=== PATIENT | female | born 1975 | race Caucasian/White ===

== ENCOUNTER 2019-01-04 14:28 | Outpatient (CLI) | payer BC ==
[~2019-01-04] VITALS: Ht 170.2 cm; Wt 127.0 kg
[2019-01-04 14:34] VITALS: BP 133/86
[2019-01-04] MEDS ORDERED: CITA40TA19 PO (14:40)
[2019-01-04 15:12] LABS: BASOPHILS % (AUTO) 0 % (0-10); EOSINOPHILS # (AUTO) 0.1 10^3/uL (0.0-0.3); EOSINOPHILS % (AUTO) 1 % (0-10); HEMATOCRIT 34 % (35-52); HEMOGLOBIN 10.8 G/DL (11.5-16.0); LYMPHOCYTES # (AUTO) 3.1 X 10^3 (1.0-4.0); LYMPHOCYTES % (AUTO) 44 % (12-44); MEAN CORPUSCULAR HEMOGLOBIN 24 PG (25-34); MEAN CORPUSCULAR HGB CONC 32 G/DL (32-36); MEAN CORPUSCULAR VOLUME 76 FL (80-99); MEAN PLATELET VOLUME 9.6 FL (7.4-10.4); MONOCYTES # (AUTO) 0.4 X 10^3 (0.0-1.0); MONOCYTES % (AUTO) 6 % (0-12); NEUTROPHILS # (AUTO) 3.4 X 10^3 (1.8-7.8); NEUTROPHILS % (AUTO) 48 % (42-75); PLATELET COUNT 397 10^3/uL (130-400); RED CELL DISTRIBUTION WIDTH 15.5 % (10.0-14.5); WHITE BLOOD COUNT 7.1 10^3/uL (4.3-11.0)
[2019-01-08] MEDS ORDERED: DOCU-143 PO (09:58)
[2019-01-08] MEDS ORDERED: IBUP-1780 PO (09:58)
[2019-01-08] MEDS ORDERED: OXYC1TAB87 PO (09:58)
== END 2019-01-04 15:15 | disposition home or self-care (01) ==
LOC: PREOP 14:28
PROVIDERS: ATTEND Obstetrics & Gynecology
DX: Z01.812 Encounter for preprocedural laboratory examination (principal); Z11.2 Encounter for screening for other bacterial diseases; N93.8 Other specified abnormal uterine and vaginal bleeding; D64.9 Anemia, unspecified
CPT/HCPCS: 36415; 85025; 86850; 86900; 86901; 87081

== ENCOUNTER 2019-01-08 11:15 | Day surgery (SDC) | payer BC ==
[~2019-01-08] VITALS: Ht 170.2 cm; Wt 127.0 kg
--- NOTE | 2019-01-08 09:19 | Progress Note-Pre Operative ---
Pre-Operative Progress Note H&P Reviewed The H&P was reviewed, patient examined and no changes noted. Date Seen by Provider: Jan 08, 2019 Time Seen by Provider: 12:30 Date H&P Reviewed: Jan 08, 2019 Time H&P Reviewed: 12:30 Pre-Operative Diagnosis: DUB/Menorrhagia/pelvic mass XENIA DAWSON MD Jan 08, 2019 09:19
--- NOTE | 2019-01-08 09:20 | Progress Note-Post Operative ---
Post-Operative Progess Note Surgeon (s)/Manager Dairy (s) Surgeon XENIA DAWSON MD Manager Dairy: Peg English Pre-Operative Diagnosis DUB/Menorrhagia/pelvic mass Post-Operative Diagnosis same with path pending Procedure & Operative Findings Date of Procedure 01/08/19 Procedure Performed/Findings TLH with BS Anesthesia Type geta Estimated Blood Loss Estimated blood loss (mL): Minimal Specimens/Packing Specimens Removed Uterus and tubes Packing: none XENIA DAWSON MD Jan 08, 2019 09:20
--- NOTE | 2019-01-08 09:59 | Discharge Instructions ---
Discharge Instructions Discharge Medications New, Converted or Re-Newed RX: RX on Chart Patient Instructions Patient Instructions: as directed Return to The Hospital For: as directed Activity & Diet Discharge Diet: No Restrictions Activity as Tolerated: No Orders-Post D/C & Referrals Follow Up Appt: RTC on Friday January 11, 2019 at 9:30 AM for staple removal Call to make follow up appt. for patient in 4 weeks. Activity: Rest for 24 hours, than as tolerated. Wound Care: May remove Band-Aid tomorrow. Replace as desired. Keep incisions clean and dry. Wash daily with soap and water. Please call in RX to patient pharmacy. Diet: As tolerated-Clear Liquids only if nauseated. shower or tub bathe as desired. No driving for 24 hours, no alcoholic beverages for 24 hours, and nothing per vagina (no tampons, douching, or intercourse) for 8 weeks. Patient to return to the clinic as soon as possible for: Temperature greater than 101F, Severe Pain, Foul discharge from incision or vagina, Excessive Bleeding (more than a period). XENIA DAWSON MD Jan 08, 2019 09:59
[~2019-01-08 11:15] MED LIST: CITA40TA19 PO; DOCU-143 PO; IBUP-1780 PO; OXYC1TAB87 PO
[2019-01-08 11:40] VITALS: BP 143/86
[2019-01-08] MEDS ORDERED: LACTATED RINGERS 1,000 ML IV PRN (11:40)
[2019-01-08] MEDS ORDERED: ROCURONIUM 10 MG/ML 5 ML SYRINGE IV ONE ×2 (11:41→12:57)
[2019-01-08] MEDS ORDERED: KETOROLAC 30 MG/ML VIAL ONE (11:41)
[2019-01-08] MEDS ORDERED: MIDAZOLAM 2 MG/2 ML (VERSED) VIAL ONE (11:41)
[2019-01-08] MEDS ORDERED: ONDANSETRON 4 MG/2 ML (SDV) Z0FRAN ONE (11:41)
[2019-01-08] MEDS ORDERED: proPOfol 200 MG/20 ML (DIPRIVAN) VIAL IV ONE (11:41)
[2019-01-08] MEDS ORDERED: GLYCOPYRROLATE 0.2 MG/ML (ROBINUL) 2 ML VIAL ONE ×2 (11:41→13:59)
[2019-01-08] MEDS ORDERED: fentaNYL INJECTION 100 MCG/2 ML AMP ONE ×2 (11:41→13:55)
[2019-01-08] MEDS ORDERED: DEXAMETHASONE 10 MG/ML (DECADRON) 1 ML VIAL ONE (11:41)
[2019-01-08] MEDS ORDERED: LIDOCAINE PF 2% 5 ML (XYLOCAINE) VIAL ONE (11:41)
[2019-01-08] MEDS ORDERED: NEOSTIGMINE 1 MG/ML 5 ML SYRINGE ONE (11:41)
[2019-01-08] MEDS ORDERED: SEVOFLURANE (ULTANE) 15 ML INHAL SOLN ONE ×2 (11:41→12:58)
[2019-01-08] MEDS ORDERED: ceFAZolin INJECTION 1,000 MG in WATER (STERILE) FOR INJECTION 10 ML IV ONE (11:45)
[2019-01-08] MEDS ORDERED: BUP/EPI 0.5% 1:200,000 (SENSORCAINE) 30 ML VIAL ONE (11:45)
[2019-01-08] MEDS ORDERED: CATHETER FLUSH 10 ML SYR IV PRN (11:45)
--- NOTE | 2019-01-08 11:51 | Progress Note-Pre Operative ---
Pre-Operative Progress Note H&P Reviewed The H&P was reviewed, patient examined and no changes noted. Date Seen by Provider: Jan 08, 2019 Time Seen by Provider: 11:51 Date H&P Reviewed: Jan 08, 2019 Time H&P Reviewed: 11:51 Pre-Operative Diagnosis: DUB/menorrhagia XENIA DAWSON MD Jan 08, 2019 11:51
[2019-01-08] MEDS ORDERED: ONDANSETRON 4 MG/2 ML (SDV) Z0FRAN IVP PRN ×2 (13:00→15:00)
[2019-01-08] MEDS ORDERED: morphine INJ 10 MG/ML 1ML (SYR OR VIAL) IVP ONE (13:00)
[2019-01-08] MEDS ORDERED: HYDROmorphone 2 MG/ML VIAL (DILAUDID) IV ONE (13:00)
[2019-01-08] MEDS: KETOROLAC 30 MG/ML VIAL IVP SCH ×2 (14:00→22:11)
[2019-01-08] MEDS ORDERED: MEPERIDINE (DEMEROL) INJ 100 MG/ML IM PRN (15:00)
[2019-01-08] MEDS ORDERED: PROMETHAZINE INJ 25 MG/ML (PHENERGAN) AMP IM PRN (15:00)
--- NOTE | 2019-01-08 15:10 | NUR ---
Pt to room 305 via bed accompanied by PACU staff. Report bedside from Rhiannon Delatorre, RN to Reinier Kennedy RN. Report from Reinier Kennedy, HUNTER. Calf SCD's on and activated. IV fluids to pump from gravity. VS taken, assessment completed. Ice chips and ice water provided. Pt and family oriented to room and call light. Pt c/o pain 06/22. Demerol/Phenergan given IM to R thigh. Continuous Spo2 monitoring 94-98% at this time, will continue to monitor. Pt denies further needs or concerns at this time.
[2019-01-08 15:15] VITALS: BP 157/79
--- NOTE | 2019-01-08 16:00 | NUR ---
To room to check on pt. Pt sleeping peacefully. Spo2 92% and above. Will continue to monitor.
[2019-01-08 16:34] VITALS: BP 164/84
--- NOTE | 2019-01-08 16:34 | NUR ---
To room to answer call light. Mom reports pt occasionally drops Spo2 to 88% when sleeping, will raise to low-mid 90's with deep breaths. Spo2 92% upon entering the room. Supplemental O2 supplied via NC at 2L while pt drowsy, Spo2 increase to 98%. Will continue to monitor.
[2019-01-08 17:34] VITALS: BP 164/83
[2019-01-08] MEDS: D5 LR IV SOLUTION 1,000 ML IV SCH (17:34)
--- NOTE | 2019-01-08 17:46 | NUR ---
Dr Young notified elevated blood pressures. No new orders rec'd. Notify if BP elevate further.
--- NOTE | 2019-01-08 18:00 | NUR ---
Pt Spo2 remains 97% and above on 2L, weaned to 1L at this time. Will continue to monitor.
[2019-01-08] MEDS: oxyCODONE/APAP 5/325MG (PERCOCET 5) TABLET PO PRN ×2 (18:19→22:11)
--- NOTE | 2019-01-08 18:50 | NUR ---
To room to check on pt. O2 sats remain 95% and above on 1L. Pt sleeping soundly at this time. O2 turned off with continuous Spo2 on for monitoring. Will update oncoming shift.
--- NOTE | 2019-01-08 22:17 | OPERATIVE REPORT ---
DATE OF SERVICE: 01/08/2019 PREOPERATIVE DIAGNOSIS: Dysfunctional uterine bleeding with intrauterine mass. POSTOPERATIVE DIAGNOSIS: Dysfunctional uterine bleeding with intrauterine mass with likely adenomyosis and uterine fibroids with pathology pending. OPERATIVE PROCEDURE: Total laparoscopic hysterectomy, bilateral salpingectomies. OPERATIVE DESCRIPTION: With the patient in the supine position under satisfactory general anesthesia, she was repositioned in the dorsal lithotomy position in the [facility] and prepped and draped in the usual fashion for abdominal and vaginal surgery using robotic assistance. Weighted speculum was placed in the posterior fornix of vagina, cervix exposed and grasped anteriorly with single tooth tenaculum. Uterus sounded to 14 cm with uterine sound. The cervix was then serially dilated with Juanjose dilators to accommodate a Skylar II manipulator, which was placed using a 6 mm x 8 cm uterine probe and a 30 mm colpotomy ring. Sutures of #1 Vicryl placed at 3 and 9 o'clock position of the cervix to affix the uterus to the manipulator. Cuenca catheter was placed in the urinary bladder. The patient was brought in low dorsal lithotomy position. A 12 mm incision was made 4 cm superior to the umbilicus and a stab wound in the base of the umbilicus. Veress needle was placed through the stab wound into the abdominal cavity. Correct placement confirmed with water drop test and the abdomen insufflated with 2.4 liters of carbon dioxide. The Veress needle was removed and a 12 mm extended operative ports were placed through the umbilical incision. Ports of 8 mm were placed through incisions of those sizes 9 cm lateral to the umbilicus at the level of the umbilicus. All three incision sites were infiltrated with 0.25% Marcaine with epinephrine prior to incision. The patient was placed in Trendelenburg allowing the bowel to spill out of the pelvis and the da Susan column was advanced on the patient and docked and operative instruments were placed and I retired to the da Susan console. At the console using the vessel sealer on the right and a bipolar fenestrated grasper on the left, the pelvis was first examined. Both fallopian tubes were somewhat tortuous and clubbed consistent with some degree of endometriosis and/or adenomyosis. Both ovaries were normal in appearance with evidence of ovulation as would be normal. The uterus was quite large, bulky, mottled and lobular consistent with adenomyosis and/or uterine fibroids. There were some adhesions of the sigmoid to the left pelvic brim. These were taken free to allow access to the IP ligament and then the laparoscope was brought around to the right lower quadrant. The appendix was identified. It was a normal vermiform appendix. The procedure was initiated by grasping the right fallopian tube and elevating it and then dividing the mesosalpinx between the ovary and the fallopian tube with the vessel sealer, clamping, cauterizing and dividing the tissue stepwise across to the utero-ovarian pedicle that was clamped, cauterized and divided as well and then the round ligament, broad ligament, cardinal ligament treating the same manner. Same procedure performed on the left, allowing for removal of both tubes and ovaries eventually with the uterus. Both ovaries were conserved. The anterior lower uterine segment and peritoneum was exposed and then the vessel sealer was replaced with a monopolar shear. The peritoneum was divided. The bladder carefully dissected down off the lower uterine segment. Then, a colpotomy incision was made starting at the 12 o'clock position and continued circumferentially until the entire colpotomy ring was exposed. This allowed the uterus to be free and brought out through the vagina with some difficulty second to a size, but it was extracted, intact with the tubes still attached. The vaginal cuff was closed with 2 sutures. V-Loc barbed suture starting first on the right angle and continuing almost completely across the vaginal cuff with the first suture taking care to ensure inclusion of the pedicles of the uterine vessels on the right. The same procedure performed on the left using the second suture and identifying the ureter before and during the process to ensure the ureter was well out of the way of harm. The vaginal cuff was then reperitonealized with lateral several stitches of that second suture. Both ureters were again identified and seemed to peristalse. There was no dilation. There was no remaining abnormal pathology. There was no significant bleeding. At this point, the procedure was terminated. The operative instruments were removed under direct vision as were the ports. The abdomen was evacuated and insufflating gas in the process of removing the ports. The skin incisions were stapled after closing the fascia at the supraumbilical incision with [id number] suture of 2-0 Vicryl. Speculum replaced in the vagina. Vaginal cuff examined and found completely intact and completely hemostatic. Cuenca catheter was left to dependent drainage. It was draining clear yellow urine. Sponge and needle counts were correct. The patient tolerated the procedure well and was uneventfully awakened from her general anesthesia and transferred to recovery room in stable condition. Job ID: [id number] DocumentID: [id number] Dictated Date: 01/08/2019 13:55:30 Investigative Reporter Date: 01/08/2019 22:16:29 Dictated By: XENIA DAWSON MD
[2019-01-09 00:35] VITALS: BP 135/70
[2019-01-09] MEDS: D5 LR IV SOLUTION 1,000 ML IV SCH (01:44)
[2019-01-09] MEDS: KETOROLAC 30 MG/ML VIAL IVP SCH (02:55)
--- NOTE | 2019-01-09 06:38 | Anesthesia-General Post-Op ---
General Patient Condition Mental Status/LOC: Same as Preop Cardiovascular: Satisfactory Nausea/Vomiting: Absent Respiratory: Satisfactory Pain: Controlled Complications: Absent Post Op Complications Complications None Follow Up Care/Instructions Patient Instructions None needed. Anesthesia/Patient Condition Patient Condition Patient is doing well, no complaints, stable vital signs, no apparent adverse anesthesia problems. No complications reported per nursing. D/C home per [facility] Criteria: Yes SUSIE WITT CRNA Jan 09, 2019 06:37
--- NOTE | 2019-01-09 07:09 | Progress Note-Standard ---
Standard Progress Note Progress Notes/Assess & Plan Date Seen by a Provider: Jan 09, 2019 Time Seen by a Provider: 07:08 Progress/Assessment & Plan His patient is without complaint. She is ambulating, tolerating oral intake well, has good pain control. Patient denies chest pain, denies shortness of breath, denies nausea vomiting, denies headache. Patient has not voided yet. Vital Signs Date Time Temp Pulse Resp B/P (MAP) Pulse Ox O2 Delivery O2 Flow Rate FiO2 01/09/19 00:35 99.7 94 18 135/70 (91) 97 01/08/19 17:34 164/83 (110) 97 01/08/19 16:59 Room Air 01/08/19 16:34 83 16 164/84 (110) 98 01/08/19 15:15 98.4 84 16 157/79 (105) 94 01/08/19 11:40 98.1 77 16 143/86 (105) 98 I & O 01/09/19 07:00 Intake Total 1010 ml Output Total 330 ml Balance 680 ml Vital signs are stable. Patient afebrile. Patient's blood pressures have been mildly elevated systolics but are normalizing The abdomen is benign. Streaming show clubbing or cyanosis. There is no Homans sign. Assessment and plan postoperative day number 1 doing well. Plan is for routine convalescence care with discharge home Final Diagnosis Dysfunctional uterine bleeding/menorrhagia XENIA DAWSON MD Jan 09, 2019 07:09
[2019-01-09 08:00] VITALS: BP 114/55
[2019-01-09] MEDS: oxyCODONE/APAP 5/325MG (PERCOCET 5) TABLET PO PRN (08:13)
[2019-01-09] MEDS ORDERED: DOCUSATE SODIUM 100 MG (COLACE) CAP PO SCH (09:00)
--- NOTE | 2019-01-09 09:00 | NUR ---
Called Ibuprofen and Colace to [facility] in [place], [place]
--- NOTE | 2019-01-09 10:37 | NUR ---
DISCHARGE PAPERS PROVIDED AND REVIEWED WITH PT, PT VERBALIZES UNDERSTANDING AND DENIES ANY QUESTIONS AT THIS TIME. PAPER SIGNED. WRITTEN RX ALSO PROVIDED AND PLACED INTO DISCHARGE FOLDER.
--- NOTE | 2019-01-09 10:45 | NUR ---
PT DISCHARGED FROM -305 TO [facility] IN STABLE CONDITION ACC BY THIS RN AND YOUNGER DAUGHTER.
[2019-01-09] MEDS ORDERED: IBUPROFEN 800 MG (MOTRIN) TAB PO SCH (15:00)
== END 2019-01-09 10:45 | disposition home or self-care (01) ==
LOC: SDC 11:15 → WS 15:20 → SDC 01-09 10:45
PROVIDERS: ATTEND Obstetrics & Gynecology
DX: N93.8 Other specified abnormal uterine and vaginal bleeding (principal); N72 Inflammatory disease of cervix uteri; D25.0 Submucous leiomyoma of uterus; D25.1 Intramural leiomyoma of uterus; D25.2 Subserosal leiomyoma of uterus; E28.2 Polycystic ovarian syndrome; F32.9 Major depressive disorder, single episode, unspecified; F41.9 Anxiety disorder, unspecified; E66.01 Morbid (severe) obesity due to excess calories; Z68.43 Body mass index [BMI] 50.0-59.9, adult; Z79.899 Other long term (current) drug therapy
CPT/HCPCS: 36415; 84703; 86850; 86900; 86901; 94664

== ENCOUNTER 2022-07-03 13:44 | Emergency (ER) | payer BC ==
[~2022-07-03] VITALS: Ht 172 cm; Wt 132.9 kg
[2022-07-03] MEDS ORDERED: ASPIRIN 81 MG CHEW (CHILDREN'S ASA) PO ONE (14:00)
[2022-07-03] MEDS ORDERED: meTOprolol 5 MG/5 ML (LOPRESSOR) VIAL IV STA (14:00)
--- NOTE | 2022-07-03 14:09 | ED Chest Pain ---
General Chief Complaint: Chest Pain Stated Complaint: CHEST PAIN Source: patient History of Present Illness Date Seen by Provider: Jul 03, 2022 Time Seen by Provider: 13:59 Initial Comments 46-year-old female presenting with complaints of chest pain. She states this pain has been going on for over 3 months but seemed worse in the last 2 days. She felt like there is tightness around her chest. She denies having cough, shortness of breath, nausea, vomiting, headache, abdominal pain. She did see her primary care in the told her if she had worsening symptoms to go to the emergency department. She denies fever or chills. She is hypertensive on arrival to the ED but denies having a diagnosis of hypertension. Timing/Duration: other (Over 3 months but worse in the last 2 days) Severity/Quality: moderate, tightness Location: other (Wrapping all Around her chest and back) Radiation: no radiation Activities at Onset: none Prior CP/Workup: no prior cardiac workup ASA po CUT OFF SAW OPERATOR PIPE BLANKS: No NTG SL CUT OFF SAW OPERATOR PIPE BLANKS: No Associated Symptoms: No abdominal pain, No back pain, No diaphoresis, No dizziness, No edema, No fatigue, No fever/chills, No headache, No heartburn, No nausea/vomiting, No rash, No shortness of breath, No swelling/lump in chest, No syncope, No weakness Allergies and Home Medications Allergies Coded Allergies: shae finley (Verified Allergy, Unknown, HIVES, 01/04/19) Patient Home Medication List Home Medication List Reviewed: Yes Citalopram Hydrobromide (Celexa) 40 Mg Tablet, 40 MG PO DAILY, (Reported) Entered as Reported by: RENO EDWARD on 01/04/19 1440 Docusate Sodium (Colace) 100 Mg Capsule, 100 MG PO BID Prescribed by: XENIA STEVENS on 01/08/19 0958 Ibuprofen (Ibuprofen) 800 Mg Tablet, 800 MG PO Q6H PRN for PAIN Prescribed by: XENIA STEVENS on 01/08/19 0958 Lisinopril (Lisinopril) 10 Mg Tablet, 10 MG PO DAILY Prescribed by: SAMREEN MORAES on 07/03/22 1535 Oxycodone HCl/Acetaminophen (Percocet 5-325 mg Tablet) 1 Each Tablet, 1 TAB PO Q4H Prescribed by: XENIA STEVENS on 01/08/19 0958 Review of Systems Review of Systems Constitutional: No chills, No fever EENTM: No Symptoms Reported Respiratory: No Symptoms Reported Cardiovascular: See HPI Gastrointestinal: Denies Nausea, Denies Vomiting Genitourinary: No Symptoms Reported Musculoskeletal: no symptoms reported Skin: no symptoms reported; No rash Psychiatric/Neurological: Anxiety Past Gvusiwv-Owanof-Fnrjua Hx Seasonal Allergies Seasonal Allergies: Yes Past Medical History Surgeries: Yes (KNEE SCOPE) Respiratory: No Cardiac: No Neurological: No Female Reproductive Disorders: Polycystic Ovarian Dis Genitourinary: No Gastrointestinal: No Musculoskeletal: No Endocrine: No HEENT: No (GLASSES) Cancer: No Psychosocial: Yes Anxiety, Depression Integumentary: No Blood Disorders: No Family Medical History Abdominal aortic aneurysm 19 FATHER Alzheimer's disease 19 FATHER Physical Exam Vital Signs Vital Signs - First Documented 07/03/22 13:50 Temp 37.2 Pulse 89 Resp 23 B/P (MAP) 195/109 (137) Pulse Ox 99 O2 Delivery Room Air O2 Flow Rate 0 Capillary Refill : Height, Weight, BMI Height: 5'7.00" Weight: 280lbs. 0.0oz. 127.922936hr; 43.9 BMI Method: General Appearance: No Apparent Distress, Anxious, Obese HEENT: PERRL/EOMI, Pharynx Normal Neck: Full Range of Motion, Normal Inspection, Non Tender, Supple Respiratory: Chest Non Tender, Lungs Clear, Normal Breath Sounds, No Accessory Muscle Use, No Respiratory Distress Cardiovascular: Regular Rate, Rhythm, Normal Peripheral Pulses Gastrointestinal: Normal Bowel Sounds, No Pulsatile Mass, Non Tender, Soft Rectal: Deferred Extremity: Normal Capillary Refill, Normal Inspection, No Pedal Edema Neurologic/Psychiatric: Alert, Oriented x3, hide dyer II-XII Norm as Tested Skin: Normal Color, Warm/Dry Progress/Results/Core Measures Results/Orders Lab Results Laboratory Tests Test 07/03/22 14:16 07/03/22 15:06 Range/Units White Blood Count 9.9 4.3-11.0 10^3/uL Red Blood Count 4.88 3.80-5.11 10^6/uL Hemoglobin 14.2 11.5-16.0 g/dL Hematocrit 42 35-52 % Mean Corpuscular Volume 85 80-99 fL Mean Corpuscular Hemoglobin 29 25-34 pg Mean Corpuscular Hemoglobin Concent 34 32-36 g/dL Red Cell Distribution Width 13.5 10.0-14.5 % Platelet Count 386 130-400 10^3/uL Mean Platelet Volume 9.5 9.0-12.2 fL Immature Granulocyte % (Auto) 0 % Neutrophils (%) (Auto) 62 42-75 % Lymphocytes (%) (Auto) 33 12-44 % Monocytes (%) (Auto) 4 0-12 % Eosinophils (%) (Auto) 1 0-10 % Basophils (%) (Auto) 0 0-10 % Neutrophils # (Auto) 6.1 1.8-7.8 10^3/uL Lymphocytes # (Auto) 3.2 1.0-4.0 10^3/uL Monocytes # (Auto) 0.4 0.0-1.0 10^3/uL Eosinophils # (Auto) 0.1 0.0-0.3 10^3/uL Basophils # (Auto) 0.0 0.0-0.1 10^3/uL Immature Granulocyte # (Auto) 0.0 0.0-0.1 10^3/uL Prothrombin Time 12.4 12.2-14.7 SEC INR Comment 0.9 0.8-1.4 Activated Partial Thromboplast Time 27 24-35 SEC D-Dimer 0.21 0.00-0.49 UG/ML Sodium Level 137 135-145 MMOL/L Potassium Level 4.0 3.6-5.0 MMOL/L Chloride Level 104 98-107 MMOL/L Carbon Dioxide Level 22 21-32 MMOL/L Anion Gap 11 5-14 MMOL/L Blood Urea Nitrogen 14 7-18 MG/DL Creatinine 0.70 0.60-1.30 MG/DL Estimat Glomerular Filtration Rate 109 BUN/Creatinine Ratio 20 Glucose Level 117 H 70-105 MG/DL Calcium Level 9.3 8.5-10.1 MG/DL Corrected Calcium 9.0 8.5-10.1 MG/DL Magnesium Level 1.8 1.6-2.4 MG/DL Total Bilirubin < 0.2 0.1-1.0 MG/DL Aspartate Amino Transf (AST/SGOT) 14 5-34 U/L Alanine Aminotransferase (ALT/SGPT) 14 0-55 U/L Alkaline Phosphatase 80 40-136 U/L Troponin I < 0.30 <0.30 NG/ML Pro-B-Type Natriuretic Peptide < 5.0 <125.0 PG/ML Total Protein 7.4 6.4-8.2 GM/DL Albumin 4.4 3.2-4.5 GM/DL Lipase 20 8-78 U/L Urine Color YELLOW Urine Clarity CLEAR Urine pH 6.5 5-9 Urine Specific Lotus 1.020 1.016-1.022 Urine Protein NEGATIVE NEGATIVE Urine Glucose (UA) NEGATIVE NEGATIVE Urine Ketones NEGATIVE NEGATIVE Urine Nitrite NEGATIVE NEGATIVE Urine Bilirubin NEGATIVE NEGATIVE Urine Urobilinogen 0.2 < = 1.0 MG/DL Urine Leukocyte Esterase NEGATIVE NEGATIVE Urine RBC (Auto) NEGATIVE NEGATIVE Urine RBC NONE /HPF Urine WBC NONE /HPF Urine Squamous Epithelial Cells 2-5 /HPF Urine Crystals NONE /LPF Urine Bacteria NEGATIVE /HPF Urine Casts NONE /LPF Urine Mucus SMALL H /LPF Urine Culture Indicated NO My Orders Orders - SAMREEN MORAES MD Cbc With Automated Diff (07/03/22 13:59) Magnesium (07/03/22 13:59) Chest 1 View Ap/Pa Only (07/03/22 13:59) Ekg Tracing (07/03/22 13:59) Comprehensive Metabolic Panel (07/03/22 13:59) Protime With Inr (07/03/22 13:59) Partial Thromboplastin Time (07/03/22 13:59) O2 (07/03/22 13:59) Monitor-Rhythm Ecg Trace Only (07/03/22 13:59) Aspirin Chewable Tablet (Baby Aspirin Ch (07/03/22 14:00) Ed Iv/Invasive Line Start (07/03/22 13:59) Lipase (07/03/22 13:59) Troponin I Fs (07/03/22 13:59) Probnp Fs (07/03/22 13:59) Fibrin Degradation Products (07/03/22 14:00) Metoprolol Tartrate Injection (Lopressor (07/03/22 14:00) Ua Culture If Indicated (07/03/22 14:01) Urine Bedside (07/03/22 14:01) Medications Given in ED Current Medications Medications Dose Ordered Sig/Gume Route Start Time Stop Time Status Last Admin Dose Admin Aspirin 324 mg ONCE ONCE PO 07/03/22 14:00 07/03/22 14:01 DC 07/03/22 14:16 324 MG Vital Signs/I&O 07/03/22 07/03/22 07/03/22 13:50 13:50 15:59 Temp 37.2 37.2 Pulse 89 72 Resp 23 23 B/P (MAP) 195/109 (137) 151/99 Pulse Ox 99 99 99 O2 Delivery Room Air Room Air Room Air O2 Flow Rate 0 0 0 Progress Progress Note #1: Progress Note Check basic labs including cardiac enzymes, EKG, chest x-ray. Administer a dose of metoprolol to help with the elevated blood pressure. Aspirin to help with her complaint of chest pain in case any of this was cardiac in nature. Progress Note #2: Progress Note Blood pressure improving with treatment in the ED. As the blood pressure was coming down patient reports that her tightness in her chest was improving and resolving. Blood work was all stable without acute significant normality. Cardiac enzymes were negative. Chest x-ray did not show any acute process. Will prescribe blood pressure medicine for home and encourage patient to follow- up with clinic and take a log of her blood pressures to take with her to the clinic. Initial ECG Impression Date: Jul 03, 2022 Initial ECG Impression Time: 14:09 Initial ECG Rate: 88 Initial ECG Rhythm: Normal Sinus Initial ECG Comparisson: No Previous ECG Available Comment Sinus rhythm with a heart rate of 88 bpm. Pulmonary disease pattern on the tracing. Left anterior fascicular block. No acute ST elevation. OK interval 162 ms. QT interval 353 ms with a QTc interval 398 ms. No prior tracing available for comparison. Diagnostic Imaging Diagonstic Imaging: Xray Plain Films/CT/US/NM/MRI: chest Comments [facility]. [place], [place] NAME: SARA MIRANDA V [facility] REC#: [id number] PT STATUS: REG ER : 1975 PHYSICIAN: ASMREEN MORAES MD ADMIT DATE: 07/03/22/ER FS Draft Date of Exam:07/03/22 CHEST 1 VIEW AP/PA ONLY INDICATION: chest pain COMPARISON: None. FINDINGS: Single frontal view of the chest demonstrates normal heart size and pulmonary vascularity. The lungs are well aerated and clear. No large pleural effusion or pneumothorax is seen. The visualized osseous structures show no acute abnormalities. IMPRESSION: 1. No acute cardiopulmonary process. Dictated on workstation # [id number] Dict: 07/03/22 1412 Trans: 07/03/22 1414 [id number] Interpreted by: LEX STEVENSON MD Electronically signed by: Reviewed: Reviewed by Me Departure Impression Primary Impression: Hypertension Qualified Codes: I10 - Essential (primary) hypertension Additional Impression: Chest tightness Disposition: HOME, SELF-CARE Condition: Stable Departure-Patient Inst. Decision time for Depature: 15:34 Referrals: DWAYNE DE LA O APRN (PCP) Primary Care Physician [facility] (Family) Primary Care Physician Patient Instructions: High Blood Pressure ED, Chest Pain, Adult ED, Controlling Your Blood Pressure Through Lifestyle, DASH Diet Add. Discharge Instructions: Your labs all appear stable without acute abnormalities. Your cardiac testing was all negative. The blood pressure was elevated when you initially got here. Medicine we gave did help with your blood pressure. Starting on a blood pressure medication may help. Consider keeping a record of blood pressure readings at home. Take your pressure once or twice a day at different times and then bring that record to the clinic to follow up with your provider. Follow-up through the clinic for reevaluation of your blood pressure and symptoms. All discharge instructions reviewed with patient and/or family. Voiced understanding. Scripts Lisinopril (Lisinopril) 10 Mg Tablet 10 MG PO DAILY for Blood Pressure for 30 Days, #30 TAB 0 Refills Prov: SAMREEN MORAES MD 07/03/22 Work/School Note: Work Release Form Date Seen in the Emergency Department: Jul 03, 2022 Return to Work: Jul 04, 2022 Restrictions: No Restrictions SAMREEN MORAES MD Jul 03, 2022 14:09
--- NOTE | 2022-07-03 14:14 | Diagnostic Imaging Report ---
INDICATION: chest pain COMPARISON: None. FINDINGS: Single frontal view of the chest demonstrates normal heart size and pulmonary vascularity. The lungs are well aerated and clear. No large pleural effusion or pneumothorax is seen. The visualized osseous structures show no acute abnormalities. IMPRESSION: 1. No acute cardiopulmonary process. Dictated by: Dictated on workstation # [id number]
[2022-07-03 14:29] LABS: BASOPHILS % (AUTO) 0 % (0-10); EOSINOPHILS # (AUTO) 0.1 10^3/uL (0.0-0.3); EOSINOPHILS % (AUTO) 1 % (0-10); HEMATOCRIT 42 % (35-52); HEMOGLOBIN 14.2 g/dL (11.5-16.0); LYMPHOCYTES # (AUTO) 3.2 10^3/uL (1.0-4.0); LYMPHOCYTES % (AUTO) 33 % (12-44); MEAN CORPUSCULAR HEMOGLOBIN 29 pg (25-34); MEAN CORPUSCULAR HGB CONC 34 g/dL (32-36); MEAN CORPUSCULAR VOLUME 85 fL (80-99); MEAN PLATELET VOLUME 9.5 fL (9.0-12.2); MONOCYTES # (AUTO) 0.4 10^3/uL (0.0-1.0); MONOCYTES % (AUTO) 4 % (0-12); NEUTROPHILS # (AUTO) 6.1 10^3/uL (1.8-7.8); NEUTROPHILS % (AUTO) 62 % (42-75); PLATELET COUNT 386 10^3/uL (130-400); WHITE BLOOD COUNT 9.9 10^3/uL (4.3-11.0)
[2022-07-03 14:52] LABS: SODIUM 137 MMOL/L (135-145)
[2022-07-03 14:53] LABS: ALANINE AMINOTRANSFERASE 14 U/L (0-55); ALKALINE PHOSPHATASE 80 U/L (40-136); BILIRUBIN,TOTAL < 0.2 MG/DL (0.1-1.0); BUN/CREATININE RATIO 20; CALCIUM 9.3 MG/DL (8.5-10.1); CARBON DIOXIDE 22 MMOL/L (21-32); CHLORIDE 104 MMOL/L (98-107); GFR ESTIMATED 109; GLUCOSE 117 MG/DL (70-105); MAGNESIUM 1.8 MG/DL (1.6-2.4)
[2022-07-03 14:54] LABS: ALBUMIN 4.4 GM/DL (3.2-4.5); LIPASE 20 U/L (8-78); TOTAL PROTEIN 7.4 GM/DL (6.4-8.2)
[2022-07-03 15:00] LABS: FIBRIN DEGRADATION PRODUCTS 0.21 UG/ML (0.00-0.49); INR 0.9 (0.8-1.4); PROTHROMBIN TIME PATIENT 12.4 SEC (12.2-14.7)
[2022-07-03 15:31] LABS: BILIRUBIN,URINE NEGATIVE (NEGATIVE); CLARITY,URINE CLEAR; COLOR,URINE YELLOW; GLUCOSE, URINE (UA) NEGATIVE (NEGATIVE); KETONES,URINE NEGATIVE (NEGATIVE); LEUKOCYTE ESTERASE ,URINE NEGATIVE (NEGATIVE); NITRITE,URINE NEGATIVE (NEGATIVE); PH,URINE 6.5 (5-9); PROTEIN,URINE NEGATIVE (NEGATIVE)
[2022-07-03] MEDS ORDERED: LISI10TA25 PO (15:35)
[2022-07-03 15:38] LABS: BACTERIA,URINE NEGATIVE /HPF
[2022-07-03 15:59] VITALS: BP 151/99
== END 2022-07-03 15:50 | disposition home or self-care (01) ==
LOC: EDUNIT# 13:44 → ER FS 13:46
DX: I10 Essential (primary) hypertension (principal); E66.9 Obesity, unspecified; Z68.41 Body mass index [BMI] 40.0-44.9, adult; Z28.311 Partially vaccinated for COVID-19
CPT/HCPCS: 36415; 71045; 80053; 81000; 83690; 83735; 83880; 84484; 84703; 85025; 85379; 85610; 85730; 93005; 93041

== ENCOUNTER → 2022-07-20 | Outpatient (CLI) | payer BC ==
[~2022-07-20] MED LIST changes: +LISI10TA25 PO
== END ==
LOC: LAB FS 08:10
PROVIDERS: ATTEND Internal Medicine Cardiovascular Disease
DX: I10 Essential (primary) hypertension (principal); I25.10 Atherosclerotic heart disease of native coronary artery without angina pectoris; R07.9 Chest pain, unspecified

== ENCOUNTER → 2022-08-14 | Outpatient (CLI) | payer BC ==
[~2022-08-14] MED LIST changes: +CATHETER FLUSH 10 ML SYR IVP PRN
[2022-08-14 09:32] VITALS: BP 133/92
[2022-08-14 09:44] VITALS: BP 167/93
[2022-08-14 09:46] VITALS: BP 165/66
--- NOTE | 2022-08-14 12:48 | Cardiology Stress Test Report ---
Stress Test Report Date of Procedure/Referring: Date of Procedure: Aug 14, 2022 PCP Bhavana Cordoba Aprn Admitting Physician Admitting Physician: Attending Physician: Bruce Whitten MD Baseline Heart Rate: 69 Baseline Blood Pressure: Blood Pressure Systolic: 165 Blood Pressure Diastolic: 66 Vital Signs Date Time Temp Pulse Resp B/P (MAP) Pulse Ox O2 Delivery O2 Flow Rate FiO2 08/14/22 09:32 74 133/92 (106) 08/14/22 09:44 21 Baseline Vital Signs Vital Signs Date Time Temp Pulse Resp B/P (MAP) Pulse Ox O2 Delivery O2 Flow Rate FiO2 08/14/22 09:32 74 133/92 (106) 08/14/22 09:44 21 Baseline EKG: Baseline EKG: NSR Summary: After explaining the procedure and details to the patient, she signed the consent and was brought to the stress nuclear laboratory. Patient exercised on standard Van protocol, EKG, heart rate and blood pressure were monitored continuously, resting and stress doses of radio tracer were injected, imaging was acquired and reviewed in the short axis, horizontal long axis and vertical long axis views Patient was able to exercise for a total of 6.30 minutes on Van protocol, METs 7.9 Maximum heart rate 154 Maximum blood pressure 170/68 Stress EKG, Minimal nondiagnostic changes Recovery EKG, Return to baseline TID: 0.8 SSS: 2 SDS: 2 EF: 63 Conclusion: 1. Fair exercise tolerance for 6 minutes and 30 seconds on standard Van protocol, 7.9 METS achieving 87% of maximum expected heart rate 2. Appropriate heart rate and blood pressure response to exercise return to baseline during recovery 3. Nondiagnostic EKG changes with exercise return to baseline during recovery 4. No significant ischemia or infarction noted on SPECT images 5. Normal left ventricular size, ejection fraction 63% Copy Copies To 1: [facility] [place] BRUCE WHITTEN MD Aug 14, 2022 12:48
== END ==
LOC: CARD 07:47
PROVIDERS: ATTEND Internal Medicine Cardiovascular Disease
DX: I10 Essential (primary) hypertension (principal); I25.10 Atherosclerotic heart disease of native coronary artery without angina pectoris
CPT/HCPCS: 78452; 93017; A9502

== ENCOUNTER → 2022-08-18 | Outpatient (CLI) | payer BC ==
[~2022-08-18] MED LIST changes: -CATHETER FLUSH 10 ML SYR IVP PRN
--- NOTE | 2022-08-18 14:39 | Diagnostic Imaging Report ---
Clinical indications: Patient with injury. EXAM: X-ray left ankle, 3 views. COMPARISON: None. FINDINGS: There is soft tissue swelling about the ankle. There is no acute fracture or dislocation. Ankle mortise and syndesmotic joints unremarkable. There are hypertrophic calcaneal spurs involving the plantar and Achilles attachment. Ankle mortise and syndesmotic joints unremarkable. IMPRESSION: 1: There is no acute fracture or dislocation. There is soft tissue swelling about the ankle. Dictated by: Dictated on workstation # [id number]
== END ==
LOC: RAD FS 13:10
PROVIDERS: ATTEND Nurse Practitioner Family
DX: S99.911A Unspecified injury of right ankle, initial encounter (principal); X58.XXXA Exposure to other specified factors, initial encounter
CPT/HCPCS: 73610

== ENCOUNTER → 2022-08-27 | Outpatient (CLI) | payer BC | LOC: CARDFS 14:54 | PROVIDERS: ATTEND Nurse Practitioner Family | DX: R07.89 Other chest pain (principal) | CPT/HCPCS: 93306 ==

== ENCOUNTER 2022-11-08 21:31 | Emergency (ER) | payer BC ==
[2022-11-08] MEDS ORDERED: PANTOPRAZOLE 40 MG (PROTONIX) VIAL IV STA (21:47)
[2022-11-08] MEDS ORDERED: KETOROLAC 30 MG/ML VIAL IVP STA (21:47)
[2022-11-08] MEDS ORDERED: NS IV 1000 ML 1,000 ML IV STA (21:47)
[2022-11-08] MEDS ORDERED: ONDANSETRON 4 MG/2 ML (SDV) Z0FRAN IVP STA (21:47)
[2022-11-08 21:51] LABS: BASOPHILS % (AUTO) 0 % (0-10); EOSINOPHILS # (AUTO) 0.2 10^3/uL (0.0-0.3); EOSINOPHILS % (AUTO) 1 % (0-10); HEMATOCRIT 40 % (35-52); HEMOGLOBIN 13.7 g/dL (11.5-16.0); LYMPHOCYTES # (AUTO) 2.5 10^3/uL (1.0-4.0); LYMPHOCYTES % (AUTO) 21 % (12-44); MEAN CORPUSCULAR HEMOGLOBIN 29 pg (25-34); MEAN CORPUSCULAR HGB CONC 34 g/dL (32-36); MEAN CORPUSCULAR VOLUME 84 fL (80-99); MEAN PLATELET VOLUME 9.2 fL (9.0-12.2); MONOCYTES # (AUTO) 0.6 10^3/uL (0.0-1.0); MONOCYTES % (AUTO) 5 % (0-12); NEUTROPHILS # (AUTO) 8.7 10^3/uL (1.8-7.8); NEUTROPHILS % (AUTO) 73 % (42-75); PLATELET COUNT 400 10^3/uL (130-400)
[2022-11-08 21:51] LABS: BACTERIA,URINE FEW /HPF; BILIRUBIN,URINE NEGATIVE (NEGATIVE); CLARITY,URINE CLEAR; COLOR,URINE YELLOW; GLUCOSE, URINE (UA) NEGATIVE (NEGATIVE); KETONES,URINE NEGATIVE (NEGATIVE); LEUKOCYTE ESTERASE ,URINE NEGATIVE (NEGATIVE); NITRITE,URINE NEGATIVE (NEGATIVE); PROTEIN,URINE TRACE (NEGATIVE); WBC,URINE RARE /HPF
--- NOTE | 2022-11-08 21:54 | ED GI ---
General Chief Complaint: Abdominal/GI Problems Stated Complaint: ABDOM PAIN/N&V Source of Information: Patient History of Present Illness Date Seen by Provider: Nov 08, 2022 Time Seen by Provider: 21:36 Initial Comments 46-year-old female presenting with complaints of 2 days of upper abdomen pain and back pain. She states that it feels like it is a band across her upper abdomen. She reports the pain is sharp and aching pain and feels similar to when she had to have her gallbladder removed. She has had cholecystectomy and a hysterectomy in terms of abdominal surgeries. She denies any new medications and denies any alcohol use. She denies burning pain or pain going up into her chest. She does feel like the pain goes into her back from her epigastric area. She has had nausea with vomiting earlier this evening and has had diarrhea stools today 3 times. She denies any new foods or travel and no ill contacts. She had chills earlier but has not taken her temperature and does not believe that she has had a fever. She had her father drive her here to the emergency department to be evaluated. She was seen earlier in the evening at urgent care and they told her if she got worse to come to the emergency department. She had been taking ibuprofen at home which had helped her get throughout the day but she kept feeling worse as the day and evening progressed. Timing/Duration: 1-2 Days Severity/Quality: Severe, Aching Location: RUQ, LUQ, Epigastric, Other (back) Radiation: RUQ, LUQ, Back, Epigastric Activities at Onset: None Modifying Factors: Worsens With Eating, Worsens With Movement Associated Symptoms: Back Pain; No Chest Pain, No Diaphoresis, No Fatigue, No Headache, No Heartburn; Nausea/Vomiting; No Rash, No Shortness of Air, No Swelling/Mass in Abdomen, No Syncope, No Weakness Allergies and Home Medications Allergies Coded Allergies: shae finley (Verified Allergy, Unknown, HIVES, 01/04/19) Patient Home Medication List Home Medication List Reviewed: Yes Citalopram Hydrobromide (Celexa) 40 Mg Tablet, 40 MG PO DAILY, (Reported) Entered as Reported by: RENO EDWARD on 01/04/19 1440 Docusate Sodium (Colace) 100 Mg Capsule, 100 MG PO BID Prescribed by: XENIA STEVENS on 01/08/19 0958 Hydrocodone/Acetaminophen (Hydrocodone-Acetamin 5-325 mg) 5 Mg-325 Mg Tablet, 1 TAB PO Q4H PRN for PAIN-SEVERE (8-10) Prescribed by: SAMREEN MORAES on 11/08/22 2341 Ibuprofen (Ibuprofen) 800 Mg Tablet, 800 MG PO Q6H PRN for PAIN Prescribed by: XENIA STEVENS on 01/08/19 09 Ibuprofen (Ibuprofen) 800 Mg Tablet, 800 MG PO Q8H PRN for PAIN Prescribed by: SAMREEN MORAES on 11/08/22 2340 Lisinopril (Lisinopril) 10 Mg Tablet, 10 MG PO DAILY Prescribed by: SAMREEN MORAES on 07/03/22 1535 Ondansetron (Ondansetron Odt) 4 Mg Tab.rapdis, 4 MG PO Q6H PRN for NAUSEA/VOMITING Prescribed by: SAMREEN MORAES on 11/08/22 2340 Oxycodone HCl/Acetaminophen (Percocet 5-325 mg Tablet) 1 Each Tablet, 1 TAB PO Q4H Prescribed by: XENIA STEVENS on 01/08/19 0958 Review of Systems Review of Systems Constitutional: chills; No fever EENTM: No Symptoms Reported Respiratory: No Symptoms Reported Cardiovascular: No Symptoms Reported Gastrointestinal: See HPI, Abdominal Pain, Diarrhea, Nausea, Vomiting Genitourinary: Denies Burning, Denies Pain Musculoskeletal: see HPI, back pain Skin: No rash Psychiatric/Neurological: No Symptoms Reported Endocrine: No Symptoms Reported Hematologic/Lymphatic: Denies Blood Clots Past [id number] Hx Patient Social History Tobacco Use?: No Use of E-Cig and/or Vaping dev: No Substance use?: No Alcohol Use?: No Pt feels they are or have been: No Seasonal Allergies Seasonal Allergies: Yes Past Medical History Surgery/Hospitalization HX: Cholecystectomy, hysterectomy, hypertension Surgeries: Yes (KNEE SCOPE) Respiratory: No Cardiac: Yes Hypertension Neurological: No Female Reproductive Disorders: Polycystic Ovarian Dis Genitourinary: No Gastrointestinal: No Gall Bladder Disease Musculoskeletal: No Endocrine: No HEENT: No (GLASSES) Cancer: No Psychosocial: Yes Anxiety, Depression Integumentary: No Blood Disorders: No Family Medical History Abdominal aortic aneurysm 19 FATHER Alzheimer's disease 19 FATHER Physical Exam Vital Signs Vital Signs - First Documented 1/27/23 21:37 Temp 36.6 Pulse 100 Resp 20 B/P (MAP) 150/89 (109) Pulse Ox 96 O2 Delivery Room Air Capillary Refill : Height/Weight/BMI Height: 5'7.00" Weight: 280lbs. 0.0oz. [id number]; 44.00 BMI Method: General Appearance: no apparent distress, obese HEENT: PERRL/EOMI, pharynx normal Neck: non-tender, full range of motion, supple, normal inspection Respiratory: chest non-tender, lungs clear, normal breath sounds, no respiratory distress, no accessory muscle use Cardiovascular: normal peripheral pulses, regular rate, rhythm Gastrointestinal: normal bowel sounds, soft, no pulsatile mass; No distended, No guarding, No rebound; tenderness (upper abdomen pain worse in epigastric area) Rectal: deferred Extremities: normal range of motion, non-tender, normal capillary refill Neurologic/Psychiatric: alert, oriented x 3 Skin: normal color, warm/dry Progress/Results/Core Measures Results/Orders Lab Results Laboratory Tests Test 11/08/22 21:40 11/08/22 21:45 Range/Units Urine Color YELLOW Urine Clarity CLEAR Urine pH 6.0 5-9 Urine Specific [place] >=1.030 1.016-1.022 Urine Protein TRACE H NEGATIVE Urine Glucose (UA) NEGATIVE NEGATIVE Urine Ketones NEGATIVE NEGATIVE Urine Nitrite NEGATIVE NEGATIVE Urine Bilirubin NEGATIVE NEGATIVE Urine Urobilinogen 0.2 < = 1.0 MG/DL Urine Leukocyte Esterase NEGATIVE NEGATIVE Urine RBC (Auto) NEGATIVE NEGATIVE Urine RBC 2-5 H /HPF Urine WBC RARE /HPF Urine Squamous Epithelial Cells 10-25 H /HPF Urine Crystals NONE /LPF Urine Bacteria FEW H /HPF Urine Casts NONE /LPF Urine Mucus LARGE H /LPF Urine Culture Indicated NO White Blood Count 12.0 H 4.3-11.0 10^3/uL Red Blood Count 4.78 3.80-5.11 10^6/uL Hemoglobin 13.7 11.5-16.0 g/dL Hematocrit 40 35-52 % Mean Corpuscular Volume 84 80-99 fL Mean Corpuscular Hemoglobin 29 25-34 pg Mean Corpuscular Hemoglobin Concent 34 32-36 g/dL Red Cell Distribution Width 13.7 10.0-14.5 % Platelet Count 400 130-400 10^3/uL Mean Platelet Volume 9.2 9.0-12.2 fL Immature Granulocyte % (Auto) 0 % Neutrophils (%) (Auto) 73 42-75 % Lymphocytes (%) (Auto) 21 12-44 % Monocytes (%) (Auto) 5 0-12 % Eosinophils (%) (Auto) 1 0-10 % Basophils (%) (Auto) 0 0-10 % Neutrophils # (Auto) 8.7 H 1.8-7.8 10^3/uL Lymphocytes # (Auto) 2.5 1.0-4.0 10^3/uL Monocytes # (Auto) 0.6 0.0-1.0 10^3/uL Eosinophils # (Auto) 0.2 0.0-0.3 10^3/uL Basophils # (Auto) 0.0 0.0-0.1 10^3/uL Immature Granulocyte # (Auto) 0.0 0.0-0.1 10^3/uL Sodium Level 133 L 135-145 MMOL/L Potassium Level 3.7 3.6-5.0 MMOL/L Chloride Level 95 L 98-107 MMOL/L Carbon Dioxide Level 24 21-32 MMOL/L Anion Gap 14 5-14 MMOL/L Blood Urea Nitrogen 15 7-18 MG/DL Creatinine 0.74 0.60-1.30 MG/DL Estimat Glomerular Filtration Rate 102 BUN/Creatinine Ratio 20 Glucose Level 139 H 70-105 MG/DL Calcium Level 9.6 8.5-10.1 MG/DL Corrected Calcium 8.5-10.1 MG/DL Total Bilirubin 0.3 0.1-1.0 MG/DL Aspartate Amino Transf (AST/SGOT) 13 5-34 U/L Alanine Aminotransferase (ALT/SGPT) 14 0-55 U/L Alkaline Phosphatase 87 40-136 U/L Total Protein 7.6 6.4-8.2 GM/DL Albumin 4.6 H 3.2-4.5 GM/DL Lipase 35 8-78 U/L My Orders Orders - SAMREEN MORAES MD Comprehensive Metabolic Panel (11/08/22 21:46) Lipase (11/08/22 21:46) Ua Culture If Indicated (11/08/22 21:46) Ed Iv/Invasive Line Start (11/08/22 21:46) Cbc With Automated Diff (11/08/22 21:46) Ct Abdomen/Pelvis W (11/08/22 21:46) Ns Iv 1000 Ml (Sodium Chloride 0.9%) (11/08/22 21:47) Ondansetron Injection (Zofran Injectio (11/08/22 21:47) Pantoprazole Injection (Protonix Injecti (11/08/22 21:47) Ketorolac Injection (Toradol Injection) (11/08/22 21:47) Stool Culture (11/08/22 21:47) Fecal Wbc (11/08/22 21:47) C Difficile Ag + Toxin A/B. (11/08/22 21:47) Iohexol Injection (Omnipaque 350 Mg/Ml 1 (11/08/22 22:00) Received Contrast (Hold Metformin- Contr (11/08/22 22:00) Ns (Ivpb) (Sodium Chloride 0.9% Ivpb Bag (11/08/22 22:00) Rx-Ondansetron Po (Rx-Zofran Po) (11/08/22 23:45) Rx-Hydrocodone/Apap 5-325 Mg (Rx-Vicodin (11/08/22 23:45) Medications Given in ED Current Medications Medications Dose Ordered Sig/Gume Route Start Time Stop Time Status Last Admin Dose Admin Iohexol 100 ml ONCE ONCE IV 11/08/22 22:00 11/08/22 22:01 DC 11/08/22 22:43 100 ML Sodium Chloride 100 ml ONCE ONCE IV 11/08/22 22:00 11/08/22 22:01 DC 11/08/22 22:43 80 ML Vital Signs/I&O 11/08/22 11/08/22 21:37 23:40 Temp 36.6 Pulse 100 87 Resp 20 18 B/P (MAP) 150/89 (109) 144/66 Pulse Ox 96 96 O2 Delivery Room Air Room Air Progress Progress Note #1: Progress Note Potential diagnosis of pancreatitis, gastritis, gastroenteritis, food poisoning, diverticulitis, colitis, hepatitis, PUD, Bowel obstruction, Bowel perforation, hiatal hernia. Order UA, CBC, CMP, Lipase, CT scan of abdomen/pelvis with IV contrast. Stool studies if she has diarrhea here in the ED. Give NS 1 L IVF bolus for hydration, Toradol 30 mg IV for pain, Pantoprazole 40 mg IV for gastritis, Zofran 4 mg IV for nausea/vomiting. Progress Note #2: Time: 21:58 Progress Note CBC shows elevated white blood cell count of 12 with a left shift. Her urinalysis is concentrated with a urine specific gravity greater than 1.030. She does not have a nitrites or leukocyte esterase or enlargement of bacteria to indicate UTI. Patient also denies having any dysuria or UTI symptoms. Chemistry still pending. Continue with IV fluids for hydration since her urine is concentrated in showing some dehydration. Progress Note #3: Time: 22:08 Progress Note Chemistry without acute significant abnormality to account for her pain and symptoms. Patient in CT scanner currently so awaiting that test and giving time for medicine she was given to see if it helps her pain and nausea. 2222 On my personal interpretation and review of her CT abdomen/pelvis with IV contrast it looks like she has some inflammation around the head of the pancreas and part of the transverse colon. No perforation or free air. No obstruction. No kidney stones. Progress Note #4: Time: 23:15 Progress Note On recheck of the patient at 2230 she was having improved pain and nausea. Counseled on CBC with mild elevation of the white blood cell count and urine showing elevated specific gravity for dehydration. No significant abnormality on her chemistry and lipase. Patient was feeling better with the fluids and treatment here in the ED. She said that her pain and nausea were gone. Awaiting radiology reading. 2315 I reviewed the radiologist report from stat rad and CT of the abdomen and pelvis with IV contrast was read out as some induration inferior to the pancreas correlate for mild pancreatitis. Mild wall thickening of the distal duodenum which may be reactive. She had diverticulosis without acute diverticulitis. There was no small bowel obstruction. She had hepatic steatosis and prior cholecystectomy. She had a prior hysterectomy. This was read by radiologist Dr. Dustin Kang MD at 2244 and faxed at [phone]. Reviewed findings with the patient and since her symptoms were improved and appeared to be mild will have her try a clear liquid diet for 24 hours advance to full liquid if she tolerates that for 24 hours. If she tolerates that for 24 hours then she could go to a bland low-fat ulcer type diet. If she is continuing to tolerate that she can go back to her regular diet. Send her with Zofran 4 mg every 6 hours as needed for nausea and vomiting. Hydrocodone 5/325 mg 1 every 4 hours as needed for severe pain. Ibuprofen 800 mg every 8 hours as needed for pain. Counseled on follow-up and return precautions. Advised that she had worsening pain and still cannot keep anything down despite the medications she should be seen again as she might need admission to the hospital. Otherwise she can check back through the clinic for continued concerns and possible further outpatient work-up for pancreatitis. Diagnostic Imaging Diagonstic Imaging: CT Plain Films/CT/US/NM/MRI: abdomen, pelvis Comments I reviewed the radiologist report from stat rad and CT of the abdomen and pelvis with IV contrast was read out as some induration inferior to the pancreas correlate for mild pancreatitis. Mild wall thickening of the distal duodenum which may be reactive. She had diverticulosis without acute diverticulitis. There was no small bowel obstruction. She had hepatic steatosis and prior cholecystectomy. She had a prior hysterectomy. This was read by radiologist Dr. Dustin Kang MD at [phone] and faxed at [phone]. Reviewed: Reviewed by Me Departure Impression Primary Impression: Epigastric abdominal pain Additional Impressions: Upper abdominal pain Nausea vomiting and diarrhea Dehydration Disposition: HOME, SELF-CARE Condition: Stable Departure-Patient Inst. Decision time for Depature: 23:22 Referrals: DWAYNE DE LA O APRN (PCP) Primary Care Physician [facility] (Family) Primary Care Physician Patient Instructions: CLEAR LIQUID DIET ADULT/CHILD, Dehydration, Adult ED, Full Liquid Diet, Gastritis ED, Pancreatitis (DC), Ulcer and Gastritis Diet Add. Discharge Instructions: Use the dissolving nausea tablets to help with keeping your stomach settled. Take the pain medicine for severe pain. Ibuprofen or Acetaminophen if the pain is not as severe. Limit Acetaminophen intake to less than 3,000 mg or about 10 regular strength Tylenol. Each Hydrocodone pain pill has 325 mg of Acetaminophen in them as well. Try the clear liquid diet for 24 hours and if tolerating then at the end advance to full liquid diet for 24 hours. If you tolerate diet then use advance to a bland ulcer type diet. If you are still doing good on that and is not making her pain worse than you can advance back to a more regular diet. Check back with the clinic for continued concerns and if your pain is not improving. Return or seek medical treatment if your pain is worsening and not improving with medication. All discharge instructions reviewed with patient and/or family. Voiced understanding. Scripts Ibuprofen (Ibuprofen) 800 Mg Tablet 800 MG PO Q8H PRN for PAIN for 10 Days, #30 TAB 0 Refills Prov: SAMREEN MORAES MD 11/08/22 Ondansetron (Ondansetron Odt) 4 Mg Tab.rapdis 4 MG PO Q6H PRN for NAUSEA/VOMITING for 4 Days, #16 TAB 0 Refills Prov: SAMREEN MORASE MD 11/08/22 Hydrocodone/Acetaminophen (Hydrocodone-Acetamin 5-325 mg) 5 Mg-325 Mg Tablet 1 TAB PO Q4H PRN for PAIN-SEVERE (8-10) for 4 Days, #24 TAB 0 Refills Prov: SAMREEN MORAES MD 11/08/22 Work/School Note: Work Release Form Date Seen in the Emergency Department: Nov 08, 2022 Return to Work: Nov 12, 2022 Restrictions: Return-No Vomiting(24hrs) SAMREEN MORAES MD Nov 08, 2022 21:54
[2022-11-08] MEDS ORDERED: HOLD METFORMIN - RECEIVED CONTRAST 20 ML VIAL IV SCH (22:00)
[2022-11-08] MEDS ORDERED: NS 100 ML (IVPB) BAG IV ONE (22:00)
[2022-11-08] MEDS ORDERED: IOHEXOL 350 MG/ML 100 ML (OMNIPAQUE 350) VIAL IV ONE (22:00)
[2022-11-08 22:07] LABS: ALKALINE PHOSPHATASE 87 U/L (40-136); BILIRUBIN,TOTAL 0.3 MG/DL (0.1-1.0); BUN/CREATININE RATIO 20; CALCIUM 9.6 MG/DL (8.5-10.1); CARBON DIOXIDE 24 MMOL/L (21-32); CHLORIDE 95 MMOL/L (98-107); CREATININE SERUM 0.74 MG/DL (0.60-1.30); GFR ESTIMATED 102; GLUCOSE 139 MG/DL (70-105); POTASSIUM 3.7 MMOL/L (3.6-5.0); SODIUM 133 MMOL/L (135-145)
[2022-11-08 22:08] LABS: ALANINE AMINOTRANSFERASE 14 U/L (0-55); ALBUMIN 4.6 GM/DL (3.2-4.5); LIPASE 35 U/L (8-78); TOTAL PROTEIN 7.6 GM/DL (6.4-8.2)
[2022-11-08 23:40] VITALS: BP 144/66
[2022-11-08] MEDS ORDERED: IBUP-1780 PO (23:40)
[2022-11-08] MEDS ORDERED: ACHD5005 PO (23:40)
[2022-11-08] MEDS ORDERED: ONDA4TAB11 PO (23:40)
[2022-11-08] MEDS ORDERED: RX-ONDANSETRON 4 MG ODT (ZOFRAN) PPK #4 PO PRN (23:45)
--- NOTE | 2022-11-09 06:38 | Diagnostic Imaging Report ---
PROCEDURE: CT abdomen and pelvis with contrast. TECHNIQUE: Multiple contiguous axial images were obtained through the abdomen and pelvis after administration of intravenous contrast. Auto Exposure Controls were utilized during the CT exam to meet ALARA standards for radiation dose reduction. All CT scans use one or more of the following dose optimizing techniques: automated exposure control, MA and/or KvP adjustment based on patient size and exam type or iterative reconstruction. INDICATION: Upper abdominal pain radiating to the back for 2 days. Nausea, vomiting and diarrhea. COMPARISON: None. DISCUSSION: The lung bases are well-aerated. Normal heart size. No pleural or pericardial fluid. Fatty hepatomegaly is noted. The gallbladder surgically absent. Inflammatory changes noted along the pancreatic head concerning for acute pancreatitis. These extend to involve the duodenum which is likely a secondary and reactive. Recommend clinical correlation for acute pancreatitis. Spleen is enlarged measuring 13.5 cm. The stomach and adrenal glands are unremarkable. No renal stone or hydronephrosis. The aorta is normal in caliber. The appendix is normal. Mild diverticulosis with no secondary evidence for diverticulitis. The bladder is decompressed. The uterus is surgically absent. No ascites or adenopathy. No osseous abnormality identified. IMPRESSION: 1. Inflammatory changes along the pancreatic head concerning for acute uncomplicated pancreatitis. Recommend clinical correlation. 2. Hepatosplenomegaly. 3. Minimal diverticulosis. 4. Agree with preliminary report. Dictated by: Dictated on workstation # [id number]
== END 2022-11-08 23:46 | disposition home or self-care (01) ==
LOC: EDUNIT# 21:31 → ER FS 21:35
DX: K85.90 Acute pancreatitis without necrosis or infection, unspecified (principal); K31.89 Other diseases of stomach and duodenum; E86.0 Dehydration; E66.9 Obesity, unspecified; Z68.41 Body mass index [BMI] 40.0-44.9, adult; Z90.49 Acquired absence of other specified parts of digestive tract; Z28.310 Unvaccinated for COVID-19
CPT/HCPCS: 36415; 74177; 80053; 81000; 83690; 85025; Q9967